=== PATIENT | female | born 1930 | race Caucasian/White ===

== ENCOUNTER 2016-08-13 11:52 | Inpatient (IN) | payer OTHER, BC ==
[2016-08-07 08:39] VITALS: BMI 29.0
--- NOTE | 2016-08-12 15:09 | HISTORY & PHYSICAL EXAMINATION ---
DATE OF ADMISSION: 08/13/2016 CHIEF COMPLAINT: Painful right hip replacement. HISTORY OF PRESENT ILLNESS: Ms. Dick is an 86-year-old female who had her right hip replaced by Dr. Shipley in April of 2016. The patient had some immediate subsidence of her femoral component which we have been monitoring by serial x-rays. The patient was limited weightbearing status for the initial portion of her recovery. At this point, the patient is having popping and what seems to be most likely subluxation episodes of her right hip where she has excruciating pain. She has not had a dislocation to date. At this point, it seems her femoral component has settled and she is now scheduled for revision of her femoral head. PAST MEDICAL HISTORY: Hypertension, hypercholesterolemia, acid reflux, right lower extremity DVT. She denies heart disease or diabetes. PAST SURGICAL HISTORY: Hysterectomy, appendectomy, left lower extremity vein stripping and left lumpectomy x4. SOCIAL HISTORY: The patient denies alcohol or tobacco use. She lives in a single [place] home with her and is currently retired. FAMILY HISTORY: Negative for DVT. MEDICATIONS: Celebrex 200 mg daily, amitriptyline 25 mg daily, pravastatin 20 mg daily, Inderal 20 mg twice daily, estradiol 0.1 mg vaginal cream, hydrocodone 5/325 p.r.n., vitamin K/D3 one daily, fiber therapy 1 daily, vitamin B12 1000 mcg daily, fish oil 500 mg 2 tablets daily, aspirin 81 mg daily, multivitamin 1 daily, Nexium 20 mg daily, HydroDIURIL 12.5 mg daily. ALLERGIES: PENICILLIN. REVIEW OF SYSTEMS: See HPI. Ten other systems reviewed, all negative. PHYSICAL EXAMINATION: VITAL SIGNS: Height 5 foot 3 inches, weight 173 pounds. BMI is 31. GENERAL: This is a well-developed, well-nourished female who is alert and oriented x3. Mood and affect are appropriate. HEENT: Normocephalic, atraumatic. Mucous membranes are moist and intact. NECK: Supple without lymphadenopathy. HEART: Regular rate and rhythm without murmurs, rubs or gallops. LUNGS: Clear to auscultation without wheezes or rhonchi. ABDOMEN: Soft and nontender. Bowel sounds are equal and active. EXTREMITIES: No ecchymosis, redness or warmth. Thigh and calf are soft and nontender. She has an anterior incision that is well healed. Log roll of the hip does not reproduce pain in the groin; however, range of motion extremes were not tested, due to her condition. She is neurovascularly intact with +5/5 strength. X-RAY EXAMINATION: AP and lateral views show a right total hip arthroplasty that appears to be in good position. She does have some noticeable subsidence of the femoral component and this has been unchanged for several months. IMPRESSION: Subsidence of the right femoral component with now possible subluxation. PLAN: The patient is currently at risk for dislocation of her right hip. She is also having episodes of acute pain, more frequently. The patient has decided to proceed with elective revision right total hip arthroplasty to a longer femoral head. We will plan on aspirin for DVT prophylaxis. PCP is Dr. Jayashree Do.
[2016-08-13] VITALS (7 sets, daily range): BP systolic 101–152; BP diastolic 66–81; PULSE 56–74; TEMP 36.3–36.7; O2SAT 91–98; Ht 162.6 cm; Wt 78.0 kg
[~2016-08-13] VITALS: Ht 162.6 cm; Wt 78.0 kg
[2016-08-13] MEDS: TRANEXAMIC ACID INJ 1,000 MG in SODIUM CHLORIDE 0.9% 100ML 100 ML IV SCH ×2 (06:30→14:15)
[~2016-08-13 11:52] MED LIST: ACET-1256 PO; ACETAMINOPHEN 500 MG TAB PO SCH; AMT25 PO; ASPI81TA28 PO; BUPIVACAINE 0.5 % 5 MG/1 ML PF 10ML VIAL ONE; CLB/200 PO; CLINDAMYCIN 600 MG/54 ML D5W 54 ML IV SCH; CYAN10005 PO; CeleBREX 200 MG CAP PO SCH; DEXAMETHASONE 4 MG TAB PO SCH; ESOM20CA PO; ESTCR TOP; FAMOTIDINE 20 MG TAB PO SCH; GABAPENTIN 300 MG CAP PO SCH; HYDR12.56 PO; LACTATED RINGER'S 1000ML 1,000 ML IV SCH; LACTATED RINGER'S 1000ML IV SCH; METOCLOPRAMIDE HCL 10 MG TAB PO SCH; MULT-506 PO; OMEG10007 PO; OXYCODONE HCL 10 MG TABCR (OXYCONTIN) PO SCH; POLYMYXIN B SULFATE 100,000 UNITS in NSS 100ML IR SCH; PRAV20TA PO; PROP20TA67 PO; PSYL0.524 PO; ROPIVACAINE 5MG/ML 30 ML 150 MG, BUPIVACAINE/EPINEPHR 0.5% MPF 30 ML, KETOROLAC TROMETH... INFIL SCH; VANCOMYCIN 1GM/270ML NSS 270 ML IV SCH; VANCOMYCIN INJ 1,200 MG in SODIUM CHLORIDE 0.9% 250ML 250 ML IV SCH; VANCOMYCIN INJ 400 MG in NSS 100ML IR SCH; VITA1CAP59 PO
--- NOTE | 2016-08-13 13:42 | History & Physical Bridge Note ---
H&P Re-Evaluation Bridge Note: I have examined the patient, reviewed the History & Physical and in the interval since the performance of the History & Physical I have noted the following changes of clinical significance: No changes noted
[2016-08-13] MEDS ORDERED: MIDAZOLAM HCL 1 MG/ML 2ML VIAL ONE (13:46)
[2016-08-13] MEDS ORDERED: FENTANYL CITRATE INJ 50 MCG/1 ML 2 ML VIAL ONE ×2 (13:46→15:38)
[2016-08-13] MEDS ORDERED: BACITRACIN 50000 UNIT VIAL ONE (14:30)
[2016-08-13] MEDS ORDERED: POVIDONE-IODINE OP SOLN 30 ML BTL ONE (14:30)
[2016-08-13] MEDS ORDERED: LACTATED RINGER'S 1000ML 1,000 ML IV PRN (15:03)
[2016-08-13] MEDS ORDERED: ONDANSETRON INJ 2 MG/ML 2 ML VIAL IV PRN ×2 (15:15→16:15)
[2016-08-13] MEDS ORDERED: FENTANYL CITRATE INJ 50 MCG/1 ML 2 ML VIAL IV PRN (15:15)
[2016-08-13] MEDS ORDERED: LIDOCAINE HCL 2% 2 ML VIAL (20MG/ML) ONE (15:38)
[2016-08-13] MEDS ORDERED: PROPOFOL IV EMULSION 10 MG/ML 20 ML VIAL IV ONE (15:38)
[2016-08-13] MEDS ORDERED: PHENYLEPHRINE HCL INJ 10 MG/ML VIAL ONE (15:42)
[2016-08-13] MEDS ORDERED: EpHEDrine SULFATE 50MG/5ML SYR ONE (15:42)
--- NOTE | 2016-08-13 16:02 | [facility] Post Operative Brief Note ---
Immediate Operative Summary Operative Date Aug 13, 2016. Pre-Operative Diagnosis Right hip subluxation with femoral component subsiding Post-Operative Diagnosis Right hip subluxation with femoral component subsiding Procedure(s) Performed Right Direct Anterior Hip Revision Surgeon Dr. Abel Shipley Academic Adviser Surgeon(s) Lluvia Damon PA-C Estimated Blood Loss 50ml Findings STEM WELL FIXED HAD SUBSIDED NO OTHER FINDINGS Specimens A. Right femoral head Complication(s) None Disposition Recovery Room / PACU
--- NOTE | 2016-08-13 16:08 | DIAGNOSTIC IMAGING REPORT ---
RIGHT HIP UNILATERAL 1 VIEW CLINICAL HISTORY: Total right hip arthroplasty COMPARISON STUDY: No previous studies for comparison. FINDINGS: A single intraoperative fluoroscopic spot images provided for interpretation. 8 seconds of fluoroscopic time was utilized. The images demonstrate a total right hip arthroplasty. No dislocation is evident on the single projection. IMPRESSION: Intraoperative fluoroscopic spot image during a total right hip arthroplasty Electronically signed by: Eduardo Pedro M.D. 08/13/2016 4:07 PM Dictated Date/Time: 08/13/2016 4:06 PM
[2016-08-13] MEDS ORDERED: ALUMINUM/MAGNESIUM/SIMETH (MAALOX MAX) 30 ML UDC PO PRN (16:15)
[2016-08-13] MEDS ORDERED: MoRPHine SULFATE 2 MG/ML CARP IV PRN (16:15)
[2016-08-13] MEDS ORDERED: BISACODYL 10 MG SUPP PR PRN (16:15)
[2016-08-13] MEDS ORDERED: METOCLOPRAMIDE HCL INJ 5 MG/ML 2 ML VIAL IV PRN (16:15)
[2016-08-13] MEDS ORDERED: DiphenhydrAMINE HCL 50 MG/ML VIAL IV PRN (16:15)
[2016-08-13] MEDS ORDERED: SOD PHOSPHATE/SOD BIPHOSPHATE ENEMA 132 ML BTL PR PRN (16:15)
[2016-08-13] MEDS ORDERED: OXYCODONE HCL IR 5 MG TAB (IMMEDIATE RELEASE) PO PRN (16:15)
[2016-08-13] MEDS ORDERED: TRAMADOL HCL 50 MG TAB PO PRN (16:15)
[2016-08-13] MEDS ORDERED: MAGNESIUM HYDROXIDE SUSP 30 ML UDC PO PRN (16:15)
[2016-08-13] MEDS ORDERED: ZOLPIDEM TARTRATE 5 MG TAB PO PRN (16:15)
--- NOTE | 2016-08-13 16:41 | OPERATIVE REPORT ---
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 POSTOPERATIVE DIAGNOSIS: Same. PROCEDURE: Exploration and revision of femoral head. SURGEON: Abel Shipley MD REGIONAL GUIDE: FLORENTIN Murguia ANESTHESIA: Spinal. BLOOD LOSS: 50 mL. REPLACEMENT FLUIDS: 1500 mL crystalloid. DRAINS: Hemovacs x1. CULTURES: None. COMPLICATIONS: None. INDICATION FOR PROCEDURE: This patient is an 86-year-old woman who on 04/29/2016, had an uncomplicated total hip replacement. Her postoperative x-rays appeared normal with good sizing and good fit and fill of the proximal canal. The patient was discharged to an initial uneventful course. She developed pain and discomfort 2-3 weeks postop and radiographs showed that she had subsided her femoral stem by approximately 6-8 mm. She did not have a fracture. She was placed on restricted weightbearing and has been otherwise stable. Recurrent x-ray showed no further subsidence; however, the patient now has a feeling of instability, although her hip has not dislocated at all. X-rays confirmed the subsidence. NOTE: FLORENTIN Murguia was present and assisted throughout due to the complicated nature of this case. She helped with preparation and set up. She first assisted throughout and personally closed the fascial, subcutaneous and skin layers and applied the postoperative dressing. DESCRIPTION OF PROCEDURE: Following satisfactory spinal, the patient was supine. The right leg was placed in the traction device and the left leg was in the well leg jordan. The leg was prepared with ChloraPrep and draped sterilely. Following a surgical time-out, using the old hip incision, an anterior approach was performed. The approach was completed through the scar with some difficulty. Hemostasis was controlled and the fascial layer, which was thickened and scarred, was divided using electrocautery. The tensor muscle was identified. It was somewhat adhered to the capsule and was reflected as good as could be. An anterior capsulotomy was performed. The capsule was extremely thickened and a capsulotomy performed exposing the hip. It was obviously that the stem had subsided and the neck angle was short. The hip was dislocated. The femoral head was removed. The femoral stem was grasped and was attempted to be removed and was felt to be extremely well fixed. A -3 head had been removed. After irrigation, a +12, 32-mm head was placed trial. The hip was reduced and intraoperative fluoroscopy using anatomic landmarks showed restorationist of leg lengths compared to the operative side. The cup again and stem appeared to be well fixed fluoroscopically and in exam. The hip was dislocated. The trial component was removed. After irrigation, a +12 head was placed. The wound was irrigated and the hip was reduced. The capsule was then closed with 1 Vicryl interrupted. After irrigation, a drain placed. The fascia was closed with 1 Vicryl interrupted, the subcutaneous tissues with 2-0 Vicryl and the skin with a running subcuticular stitch of 3-0 V-Loc. Dermabond and a dry dressing were applied. The patient was returned to her bed in stable condition. I attest to the content of the Intraoperative Record and any orders documented therein. Any exceptio ns are noted below.
--- NOTE | 2016-08-13 16:45 | DIAGNOSTIC IMAGING REPORT ---
AP PELVIS AND RIGHT HIP 2 VIEWS CLINICAL HISTORY: Postoperative subluxation COMPARISON STUDY: 04/29/2016 FINDINGS: There are postsurgical changes of a total right hip arthroplasty. No acute fractures are visualized. No dislocations are evident. The femoral component is more deeply seated within the proximal femur as was visualized on the preceding study. IMPRESSION: Postsurgical changes. No fractures or dislocations identified. Electronically signed by: Eduardo Pedro M.D. 08/13/2016 4:44 PM Dictated Date/Time: 08/13/2016 4:41 PM
--- NOTE | 2016-08-13 17:33 | Anesthesiology Progress Note ---
Anesthesia Post Op Note Date & Time Aug 13, 2016 at 17:33 Vital Signs Pain Intensity: 0 Vital Signs Past 12 Hours Date Time Temp Pulse Resp B/P Pulse Ox O2 Delivery O2 Flow Rate FiO2 08/13/16 17:20 36.6 59 18 109/58 98 Nasal Cannula 2 08/13/16 17:08 36.6 60 21 107/67 97 Nasal Cannula 2 08/13/16 17:04 60 17 111/57 97 08/13/16 17:04 60 17 08/13/16 16:59 61 19 08/13/16 16:59 60 19 105/54 100 08/13/16 16:54 59 17 108/55 97 08/13/16 16:54 59 17 08/13/16 16:49 59 20 102/52 97 08/13/16 16:49 59 20 08/13/16 16:46 101/52 08/13/16 16:40 60 14 105/48 100 Mask 10 08/13/16 16:30 74 17 104/62 100 Mask 10 08/13/16 16:24 37.1 58 16 95/45 100 Mask 10 08/13/16 12:41 36.5 67 20 143/69 97 Room Air Notes Mental Status: alert / awake / arousable, participated in evaluation Pt Amnestic to Procedure: Yes Nausea / Vomiting: adequately controlled Pain: adequately controlled Airway Patency, RR, SpO2: stable & adequate BP & HR: stable & adequate Hydration State: stable & adequate Anesthetic Complications: no major complications apparent
[2016-08-13] MEDS: D5W AND 1/2NSS + 20MEQ KCL 1,000 ML IV SCH (19:22)
[2016-08-13] MEDS: KETOROLAC TROMETHAMINE 15 MG/ML VIAL IV. SCH (19:23)
[2016-08-13] MEDS: ESTRACE~ORDER AWAITING ACTION SCH (19:27)
[2016-08-13] MEDS: CLINDAMYCIN IV 600 MG in DEXTROSE 5% ADD-VANTAGE 50ML 50 ML IV SCH (20:25)
[2016-08-13] MEDS: PROPRANOLOL HCL 20 MG TAB PO SCH (20:27)
[2016-08-13] MEDS: ASPIRIN 81 MG ECTAB PO SCH (20:27)
[2016-08-13] MEDS ORDERED: AMITRIPTYLINE HCL 25 MG TAB PO SCH (21:00)
[2016-08-13] MEDS ORDERED: SENNA 8.6 MG TAB PO SCH (21:00)
[2016-08-13] MEDS ORDERED: PRAVASTATIN SOD 20 MG TAB PO SCH (21:00)
[2016-08-13] MEDS: ACETAMINOPHEN 500 MG TAB PO SCH (22:22)
[2016-08-14] MEDS: KETOROLAC TROMETHAMINE 15 MG/ML VIAL IV. SCH ×2 (00:03→04:56)
[2016-08-14 03:35] VITALS: BP 121/70; PULSE 58; TEMP 36.6; O2SAT 91
[2016-08-14] MEDS: CLINDAMYCIN IV 600 MG in DEXTROSE 5% ADD-VANTAGE 50ML 50 ML IV SCH (04:56)
[2016-08-14] MEDS: D5W AND 1/2NSS + 20MEQ KCL 1,000 ML IV SCH (04:56)
[2016-08-14] MEDS: ACETAMINOPHEN 500 MG TAB PO SCH (04:57)
[2016-08-14 06:08] LABS: BASO % 0.3 %; BASO ABS # 0.02 K/uL (0-0.2); COMPLETE YES; HEMATOCRIT 34.3 % (37-47); IG% 0.1 %; LYMPH % 21.1 %; LYMPH ABS # 1.45 K/uL (1.2-3.4); MEAN CELL VOLUME 87.3 fL (80-100); MEAN CORPUSCULAR HEMOGLOBIN 30.3 pg (25-34); MEAN CORPUSCULAR HGB CONC 34.7 g/dl (32-36); MEAN PLATELET VOLUME 9.6 fL (7.4-10.4); MONO % 8.6 %; NEUT % 69.9 %; PLATELET COUNT 195 K/uL (130-400); RED BLOOD COUNT 3.93 M/uL (4.2-5.4); WHITE BLOOD COUNT 6.86 K/uL (4.8-10.8)
[2016-08-14 06:35] LABS: BUN/CREATININE RATIO 16.3 (10-20); CALCIUM 8.7 mg/dl (8.5-10.1); CREATININE 1.2 mg/dl (0.60-1.20); POTASSIUM 4.6 mmol/L (3.5-5.1)
[2016-08-14 07:13] VITALS: BP 128/75; PULSE 59; TEMP 36.7; O2SAT 90
--- NOTE | 2016-08-14 07:49 | Orthopedic Progress Note ---
Orthopedic Progress Note Date of Service Aug 14, 2016. Subjective Post OP Day: 1 Reports: feeling well, pain controlled w PO medications, Denies: SOB, complaints , nausea / vomiting Objective calves soft nontender, N/V intact, hip located, dressing C/D/I, toes mobile, hemovac drainage (125 LAST SHIFT ) Date Time Temp Pulse Resp B/P Pulse Ox O2 Delivery O2 Flow Rate FiO2 08/14/16 07:24 Room Air 08/14/16 07:13 36.7 59 16 128/75 90 Room Air 08/14/16 03:35 36.6 58 15 121/70 91 Room Air 08/13/16 23:55 Room Air 08/13/16 23:20 36.6 63 16 133/75 91 Room Air 08/13/16 20:29 36.7 71 16 145/81 94 Nasal Cannula 2.0 08/13/16 19:30 36.5 74 16 152/80 95 Nasal Cannula 2.0 08/13/16 18:40 36.6 67 16 127/78 94 Nasal Cannula 2.0 08/13/16 17:57 36.4 56 18 101/68 98 Nasal Cannula 2.0 08/13/16 17:30 93 Nasal Cannula 2.0 08/13/16 17:30 93 Nasal Cannula 2.0 08/13/16 17:30 36.3 60 16 108/66 93 Nasal Cannula 2.0 08/13/16 17:20 36.6 59 18 109/58 98 Nasal Cannula 2 08/13/16 17:08 36.6 60 21 107/67 97 Nasal Cannula 2 08/13/16 17:04 60 17 111/57 97 08/13/16 17:04 60 17 08/13/16 16:59 61 19 08/13/16 16:59 60 19 105/54 100 08/13/16 16:54 59 17 108/55 97 08/13/16 16:54 59 17 08/13/16 16:49 59 20 102/52 97 08/13/16 16:49 59 20 08/13/16 16:46 101/52 08/13/16 16:40 60 14 105/48 100 Mask 10 08/13/16 16:30 74 17 104/62 100 Mask 10 08/13/16 16:24 37.1 58 16 95/45 100 Mask 10 08/13/16 12:41 36.5 67 20 143/69 97 Room Air Laboratory Results 24 Hours: Test 08/14/16 05:33 White Blood Count 6.86 K/uL Red Blood Count 3.93 M/uL Hemoglobin 11.9 g/dL Hematocrit 34.3 % Mean Corpuscular Volume 87.3 fL Mean Corpuscular Hemoglobin 30.3 pg Mean Corpuscular Hemoglobin Concent 34.7 g/dl Platelet Count 195 K/uL Mean Platelet Volume 9.6 fL Neutrophils (%) (Auto) 69.9 % Lymphocytes (%) (Auto) 21.1 % Monocytes (%) (Auto) 8.6 % Eosinophils (%) (Auto) 0.0 % Basophils (%) (Auto) 0.3 % Neutrophils # (Auto) 4.79 K/uL Lymphocytes # (Auto) 1.45 K/uL Monocytes # (Auto) 0.59 K/uL Eosinophils # (Auto) 0.00 K/uL Basophils # (Auto) 0.02 K/uL Assessment & Plan Assessment: POD 1 REVISION FEMORAL HEAD FOR STEM SUBSIDENCE Plan: HOME TODAY W [facility] Inhouse Planning Pain Management: Celebrex, PO Tylenol, Oxy IR DVT Prophylaxis: TEDs, SCDs, ASA Discharge Planning Discharge Planning: home with home health Pain Management: Celebrex, PO Tylenol, Oxy IR DVT Prophylaxis: TEDs, ASA
[2016-08-14] MEDS: ESTRACE~ORDER AWAITING ACTION SCH ×2 (08:00)
--- NOTE | 2016-08-14 08:26 | Discharge Instructions ---
Discharge Instructions Admission Reason for Admission: Hip Sublexation, S/P Femoral Subsidence Discharge Discharge Diagnosis / Problem: sp left ANGEL revision Discharge Goals Goal(s): Decrease discomfort, Improve function, Increase independence Activity Recommendations Activity Limitations: per Instructions/Follow-up section . Instructions / Follow-Up Instructions / Follow-Up ACTIVITY RECOMMENDATIONS: SELF CARE INSTRUCTIONS AFTER TOTAL HIP REPLACEMENT : Direct Anterior Approach Until the incision and soft tissues around your hip have healed, there is a possibility that the hip prosthesis could dislocate. A. Hip flexion ( Up & Down out of chair or steps ) may be difficult. This is normal. B. Numbness in front of the thigh is also normal for a few weeks. C. Use hand rails when walking on stairs. D. Wear low heeled shoes with non-slip soles. E. Be sure that your floors are free of things that could trip you - throw rugs , electrical cords, small objects. Avoid wet and waxed floors, especially with crutches and canes. F. Try to walk several times a day with rest periods between. G. Continue with all the exercises taught to you in the hospital. Again, make walking a part of your daily routine. SPECIAL CARE INSTRUCTIONS: VERY IMPORTANT TO READ AND REVIEW A. You may still be at risk for phlebitis and blood clots. 1. Wear surgical stockings (ISAURA hose) for 2 weeks after surgery to improve circulation and reduce swelling. 2. Take Aspirin 81mg twice daily for 4 weeks or as directed by your doctor. This is your blood thinner. 3. High risk patients may be prescribed a stronger blood thinner if necessary. 4. If you are on Coumadin normally, your family doctor/hearing health technician should monitor your blood work. Expect a phone call the day of or the day after bloodwork is drawn to adjust your dosage. B. You must take antibiotics before having dental work, bladder, bowel and other surgery. Your doctor will provide you with a permanent card to carry describing precautions. C. Call [facility] if you have a fever, redness or swelling around the incision, cloudy drainage from incision, or sudden increase in pain in your hip, not relieved by your regular pain medication. D. Please call the office at if you have any concerns or questions about your operation or recovery. * YOU MAY SHOWER, NO TUB BATHS UNTIL CLEARED BY YOUR DOCTOR. - Keep an extra close eye on the top portion of your incision. Be sure to keep clean & dry. * WEAR ISAURA HOSE 20 HOURS PER DAY FOR 2 WEEKS. * YOU MAY PROGRESS FROM A WALKER, TO A CANE, TO INDEPENDENT AT YOUR OWN PACE. * MOST PATIENTS WILL HAVE HOME NURSING FOR THERAPY. IF YOU DECIDE TO DO OUTPATIENT PHYSICAL THERAPY, PLEASE SCHEDULE THIS 3 TIMES PER WEEK. KEEP SURGICAL DRESSING IN PLACE X 7 DAYS THEN REMOVE. FOLLOW INSTRUCTIONS BELOW. * DERMABOND Prineo- This is a mesh tape dressing that is covered with glue. It should remain in place until the incision is properly healed, usually 10-14 days. This dressing is designed to naturally slough off. You may trim the excess mesh tape as it peels off. Incision may be briefly wet in a shower. Dry immediately by blotting with a clean, dry towel. Do not bath or swim until instructed by your doctor. Do not scratch, rub, or pick at the dressing. Do not apply any topical ointments or lotions until dressing is completely removed and/or instructed by your doctor. There may be a small piece of suture material at one end of your incision. Do not pull or trim this. If it is bothersome or catching on clothing, you may cover it with a band-aid. FOLLOW UP VISIT: If appointment is not already scheduled: Please call [facility] to make a follow-up appointment for 2 weeks after your surgery at . Current Hospital Diet Patient's current hospital diet: Regular Diet Discharge Diet Recommended Diet: Regular Diet Procedures Procedures Performed: Right Direct Anterior Hip Revision Pending Studies Studies pending at discharge: no Medical Emergencies . Who to Call and When: Medical Emergencies: If at any time you feel your situation is an emergency, please call 911 immediately. . Non-Emergent Contact Non-Emergency issues call your: Primary Care Provider . "Provider Documentation" section prepared by Lluvia Damon. VTE Core Measure Inpt VTE Proph given/why not?: Other Anticoagulation, T.E.D. Stockings, SCD's [place] Drug Monitoring Program Search Results: patient reviewed within database, no issues identified
[2016-08-14] MEDS ORDERED: CLB/200 PO (08:29)
[2016-08-14] MEDS ORDERED: SNK PO (08:29)
[2016-08-14] MEDS ORDERED: ACET-1256 PO (08:29)
[2016-08-14] MEDS ORDERED: RXC5 PO (08:29)
[2016-08-14] MEDS ORDERED: ASPI81TA28 PO (08:29)
[2016-08-14] MEDS ORDERED: ONDA8TAB6 PO (08:29)
[2016-08-14] MEDS ORDERED: MULTIVITAMIN TAB PO SCH (09:00)
[2016-08-14] MEDS ORDERED: PANTOprazole SOD 40 MG TAB PO SCH (09:00)
[2016-08-14] MEDS ORDERED: CYANOCOBALAMIN 500 MCG TAB (VIT B-12) PO SCH (09:00)
[2016-08-14] MEDS ORDERED: NURSING VERBAL MED ORDER ONE (09:00)
[2016-08-14] MEDS ORDERED: HYDROCHLOROTHIAZIDE 25 MG TAB PO SCH (09:00)
[2016-08-14] MEDS ORDERED: [UNRECOGNIZED DRUG - MIXTURE] PO SCH (09:00)
[2016-08-14] MEDS: PROPRANOLOL HCL 20 MG TAB PO SCH (09:11)
[2016-08-14] MEDS: ASPIRIN 81 MG ECTAB PO SCH (09:12)
[2016-08-14 09:53] VITALS: BP 149/84; PULSE 50; O2SAT 93
[2016-08-14 11:15] VITALS: BP 128/75; PULSE 59; TEMP 36.7; O2SAT 90
[2016-08-15] MEDS ORDERED: CeleBREX 200 MG CAP PO SCH (08:00)
--- NOTE | 2016-08-23 14:16 | DISCHARGE SUMMARY ---
DISCHARGE DIAGNOSIS: Recurrent hip subluxation, right hip. SECONDARY DIAGNOSIS: None. CONSULTS: None. COMPLICATIONS: None. PROCEDURE: The patient underwent a revision right total hip arthroplasty with Dr. Shipley on 08/13/2016. BRIEF HISTORY: Please see previously dictated history and physical. HOSPITAL SUMMARY: The patient was admitted on the above day for the above procedure. Procedure went without complication. Postop day 1, the patient was feeling well without complaints. She denied chest pain or shortness of breath. Vital signs were stable. She was afebrile. Dressing was clean, dry and intact. She was neurovascularly intact. Calves were soft and nontender. Hemovac drained 125 mL. Hemoglobin was 11.9. The patient began physical therapy per protocol. She was discharged to home later that day in stable condition. For further review please see the chart. Lab, x-ray data and discharge instructions as per chart.
== END 2016-08-14 11:58 | disposition home health service (06) | DRG 468 ==
LOC: ENRESERVTM → ENRESERVDT → C.ACU 11:52 → C.3E 13:00
PROVIDERS: ADMIT Orthopaedic Surgery; ATTEND Orthopaedic Surgery
PROC: 0SRR0JZ Replacement of Right Hip Joint, Femoral Surface with Synthetic Substitute, Open Approach (ICD-10-PCS; principal; 2016-08-13 14:00)
PROC: 0SPR0JZ Removal of Synthetic Substitute from Right Hip Joint, Femoral Surface, Open Approach (ICD-10-PCS; principal; 2016-08-13 14:00)
DX: T84.020A Dislocation of internal right hip prosthesis, initial encounter (principal); K21.9 Gastro-esophageal reflux disease without esophagitis; E78.00 Pure hypercholesterolemia, unspecified; I10 Essential (primary) hypertension; G43.909 Migraine, unspecified, not intractable, without status migrainosus; M19.90 Unspecified osteoarthritis, unspecified site; Z86.718 Personal history of other venous thrombosis and embolism; Z79.1 Long term (current) use of non-steroidal anti-inflammatories (NSAID); Z79.82 Long term (current) use of aspirin; Z79.899 Other long term (current) drug therapy; Z79.891 Long term (current) use of opiate analgesic

== ENCOUNTER → 2017-05-05 | Outpatient (CLI) | payer BC ==
[~2017-05-05] MED LIST changes: -ACETAMINOPHEN 500 MG TAB PO SCH; -BUPIVACAINE 0.5 % 5 MG/1 ML PF 10ML VIAL ONE; -CLINDAMYCIN 600 MG/54 ML D5W 54 ML IV SCH; -CeleBREX 200 MG CAP PO SCH; -DEXAMETHASONE 4 MG TAB PO SCH; -FAMOTIDINE 20 MG TAB PO SCH; -GABAPENTIN 300 MG CAP PO SCH; -LACTATED RINGER'S 1000ML 1,000 ML IV SCH; -LACTATED RINGER'S 1000ML IV SCH; -METOCLOPRAMIDE HCL 10 MG TAB PO SCH; -OXYCODONE HCL 10 MG TABCR (OXYCONTIN) PO SCH; -POLYMYXIN B SULFATE 100,000 UNITS in NSS 100ML IR SCH; -ROPIVACAINE 5MG/ML 30 ML 150 MG, BUPIVACAINE/EPINEPHR 0.5% MPF 30 ML, KETOROLAC TROMETH... INFIL SCH; +RXC5 PO; +SNK PO; -VANCOMYCIN 1GM/270ML NSS 270 ML IV SCH; -VANCOMYCIN INJ 1,200 MG in SODIUM CHLORIDE 0.9% 250ML 250 ML IV SCH; -VANCOMYCIN INJ 400 MG in NSS 100ML IR SCH
== END | disposition home or self-care (01) ==
LOC: C.LABMFLN 16:12
PROVIDERS: ATTEND Family Medicine
DX: R06.09 Other forms of dyspnea (principal)

== ENCOUNTER → 2017-05-28 | Outpatient (CLI) | payer OTHER, BC ==
[2017-05-28 17:56] LABS: BASO % 0.7 %; BASO ABS # 0.04 K/uL (0-0.2); COMPLETE YES; EOS % 2.1 %; HEMATOCRIT 42.6 % (37-47); IG% 0.2 %; LYMPH % 39.2 %; LYMPH ABS # 2.41 K/uL (1.2-3.4); MEAN CELL VOLUME 90.6 fL (80-100); MEAN CORPUSCULAR HEMOGLOBIN 30.4 pg (25-34); MEAN CORPUSCULAR HGB CONC 33.6 g/dl (32-36); MEAN PLATELET VOLUME 9.9 fL (7.4-10.4); MONO % 11.2 %; NEUT % 46.6 %; PLATELET COUNT 215 K/uL (130-400); WHITE BLOOD COUNT 6.15 K/uL (4.8-10.8)
[2017-05-28 18:25] LABS: BLOOD UREA NITROGEN 17 mg/dl (7-18); BUN/CREATININE RATIO 20.1 (10-20); CALCIUM 9.7 mg/dl (8.5-10.1); CARBON DIOXIDE 33 mmol/L (21-32); CHLORIDE 101 mmol/L (98-107); CREATININE 0.84 mg/dl (0.60-1.20); GLUCOSE 86 mg/dl (70-99); POTASSIUM 3.8 mmol/L (3.5-5.1); SODIUM 136 mmol/L (136-145)
== END | disposition home or self-care (01) ==
LOC: C.LABMFLN 11:04
PROVIDERS: ATTEND Family Medicine
DX: R53.83 Other fatigue (principal); E78.5 Hyperlipidemia, unspecified; I10 Essential (primary) hypertension; Z12.31 Encounter for screening mammogram for malignant neoplasm of breast; D72.829 Elevated white blood cell count, unspecified